=== PATIENT | female | born 1945 | race Two or more races ===

== ENCOUNTER 2018-07-15 08:19 | Emergency (ER) | payer OTHER ==
[~2018-07-15] VITALS: Ht 165.1 cm; Wt 77.1 kg
[~2018-07-15 08:19] MED LIST: CIPRO750 MG PO; CLONAZEPAM1 MG PO; DOCUSATE SODIU100 MG PO; METHYLPRED4 MG/DOSE- PO; NEURONTIN PO; PERCOCET 5/3251 TAB PO
[2018-07-15] MEDS ORDERED: LYRICA150 MG (08:52)
[2018-07-15] MEDS ORDERED: METFORMIN HCL850 MG (08:52)
[2018-07-15] MEDS ORDERED: AMARYL (08:53)
[2018-07-15] MEDS ORDERED: ATENOLOL25 GM (08:53)
[2018-07-15] MEDS ORDERED: NORVASC5 MG (08:53)
[2018-07-15] MEDS ORDERED: ATENOLOL25 MG (08:54)
== END 2018-07-15 12:57 | disposition home or self-care (01) ==
LOC: ER 08:19
DX: S30.0XXA Contusion of lower back and pelvis, initial encounter (principal); S70.01XA Contusion of right hip, initial encounter; S00.83XA Contusion of other part of head, initial encounter; W18.39XA Other fall on same level, initial encounter; Y93.89 Activity, other specified; Y92.091 Bathroom in other non-institutional residence as the place of occurrence of the external cause; Y99.8 Other external cause status

== ENCOUNTER 2019-01-11 04:40 | Emergency (ER) | payer OTHER ==
[~2019-01-11] VITALS: Ht 167.6 cm; Wt 81.6 kg
[~2019-01-11 04:40] MED LIST changes: +AMARYL; +ATENOLOL25 GM; +ATENOLOL25 MG; +LYRICA150 MG; +METFORMIN HCL850 MG; +NORVASC5 MG
[2019-01-11] MEDS ORDERED: PERCOCET 5-3251 EACH PO (08:43)
[2019-01-11] MEDS ORDERED: SKELAXIN800 MG PO (08:43)
[2019-01-11] MEDS ORDERED: CELECOXIB200 MG PO (08:43)
== END 2019-01-11 09:06 | disposition home or self-care (01) ==
LOC: ER 04:40
DX: S33.5XXA Sprain of ligaments of lumbar spine, initial encounter (principal); S19.89XA Other specified injuries of other specified part of neck, initial encounter; M62.830 Muscle spasm of back; X50.0XXA Overexertion from strenuous movement or load, initial encounter; Y93.89 Activity, other specified; Y92.89 Other specified places as the place of occurrence of the external cause; Y99.8 Other external cause status

== ENCOUNTER → 2019-01-27 | Outpatient (CLI) | payer OTHER ==
[~2019-01-27] MED LIST changes: +CELECOXIB200 MG PO; +PERCOCET 5-3251 EACH PO; +SKELAXIN800 MG PO
== END | disposition home or self-care (01) ==
LOC: MRI 01-26 12:05
DX: M50.00 Cervical disc disorder with myelopathy, unspecified cervical region (principal)
CPT/HCPCS: 72141